=== PATIENT | female | born 1950 | race Caucasian/White ===

== ENCOUNTER 2024-08-31 22:54 | Inpatient (IN) | payer MEDICARE ==
--- NOTE | 2024-08-31 23:30 | ED ---
General Adult HPI - General Chief complaint: Dizziness Stated complaint: AMS Time Seen by Provider: 08/31/24 23:08 Source: patient Mode of arrival: EMS Limitations: no limitations - History of Present Illness Initial comments: Dictation was produced using [employer] dictation software. please excuse any grammatical, word or spelling errors. Chief Complaint: Patient 73-year-old female with dizziness. History of Present Illness: Patient 73-year-old female presents to the emergency department for dizziness. Patient states she has been feeling well most of the day. States she feels dizzy apparently has recent history of cognitive impairment. She was at another concert when her symptoms began. Patient states she feels much better since being in the ER. No pain. No fever, chills or night sweats. No obvious sick contacts. The ROS documented in this emergency department record has been reviewed and confirmed by me. Those systems with pertinent positive or negative responses have been documented in the HPI. All other systems are other negative and/or noncontributory. - Related Data Allergies Allergy/AdvReac Type Severity Reaction Status Date / Time No Known Allergies Allergy Verified 08/31/24 23:10 Review of Systems ROS Statement: Those systems with pertinent positive or pertinent negative responses have been documented in the HPI. ROS Other: All systems not noted in ROS Statement are negative. Past Medical History Past Medical History: Chest Pain / Angina, Diabetes Mellitus, Hypertension Additional Past Medical History / Comment(s): Breast Cancer History of Any Multi-Drug Resistant Organisms: None Reported Past Surgical History: Adenoidectomy, Tonsillectomy Past Psychological History: Anxiety Smoking Status: Never smoker Past Alcohol Use History: None Reported Past Drug Use History: None Reported General Exam - General Exam Comments Initial Comments: PHYSICAL EXAM: General Impression: Alert and oriented x3, not in acute distress HEENT: Normocephalic atraumatic, extra-ocular movements intact, pupils equal and reactive to light bilaterally, mucous membranes moist. Cardiovascular: Heart regular rate and rhythm Chest: Able to complete full sentences, no retractions, no tachypnea Abdomen: abdomen soft, non-tender, non-distended, no organomegaly Musculoskeletal: Pulses present and equal in all extremities, no peripheral edema Motor: no focal deficits noted Neurological: CN II-XII grossly intact, no focal motor or sensory deficits noted Skin: Intact with no visualized rashes Psych: Normal affect and mood Limitations: no limitations Course Vital Signs 08/31/24 08/31/24 23:04 23:31 Temperature 98.7 F Pulse Rate 100 100 Respiratory 18 16 Rate Blood Pressure 183/113 141/96 O2 Sat by Pulse 97 96 Oximetry - Reevaluation(s) Reevaluation #1: 09/01/24 01:08 Patient reevaluated at bedside at 1:07 AM. She does not have family. She is confused states that she lives in [place]. She believes that she is currently in [place]. Patient unaware that she is all the way in [place]. Multiple attempts were made to contact family however no response. Patient evaluated bedside at 1:08 AM found to be in stable medical condition. Patient well-appearing no distress. She however is confused and is unclear if patient has a history of dementia or mental disability. Medical Decision Making - Medical Decision Making Was pt. sent in by a medical professional or institution (, PA, OPERATIONS ASST, urgent care, hospital, or senior care...) When possible be specific @ -No Did you speak to anyone other than the patient for history (EMS, parent, family, police, friend...)? What history was obtained from this source @ -No Did you review nursing and triage notes (agree or disagree)? Why? @ -I reviewed and agree with nursing and triage notes Were old charts reviewed (outside hosp., previous admission, EMS record, old EKG, old radiological studies, urgent care reports/EKG's, senior care records)? Report findings @ -No old charts were reviewed Differential Diagnosis (chest pain, altered mental status, abdominal pain women, abdominal pain men, vaginal bleeding, musculoskeletal, weakness, fever, dyspnea, syncope, headache, dizziness, GI bleed, back pain, seizure, CVA, palpatations, mental health)? @ -Differential Altered Mental Status: Hypoglycemia, DKA, hypercapnia, ETOH, overdose, CO poisoning, trauma, myxedema coma, HTN encephalopathy, infection, encephalitis, psychosis, intercranial hemorrhage, hepatic encephalopathy, meningitis, CVA, this is not meant to be an all-inclusive list EKG interpreted by me (3pts min.). @ -See above X-rays interpreted by me (1pt min.). @ -None done CT interpreted by me (1pt min.). @ - U/S interpreted by me (1pt. min.). @ -None done What testing was considered but not performed or refused? (CT, X-rays, U/S, labs)? Why? @ -None What meds were considered but not given or refused? Why? @ -None Was smoking cessation discussed for >3mins.? @ -No Were there social determinants of health that impacted care today? How? (Homelessness, low income, unemployed, alcoholism, drug addiction, transportation, low edu. Level, literacy, decrease access to med. care, [facility], rehab)? @ -No Was there de-escalation of care discussed even if they declined (Discuss DNR or withdrawal of care, Hospice)? DNR status @ -No What co-morbidities impacted this encounter? (DM, HTN, Smoking, COPD, CAD, Cancer, CVA, ARF, Chemo, Hep., AIDS, mental health diagnosis, sleep apnea, morbid obesity)? @ -None Was patient admitted / discharged? Hospital course, mention meds given and route, prescriptions, significant lab abnormalities, going to OR and other pert inent info. @ -73-year-old female with no reported significant comorbidities presents to the ER for dizziness. Apparently was seen stumbling around at an outdoor concert. Vital signs stable. Patient no distress no focal neurologic deficits. Patient is confused and believes that she is currently in [place]. She does not know how she got here when she was told that she is currently in [facility]. Multiple attempts were made to contact family. Labs unremarkable. Patient will be admitted with social work consultation for disposition planning. Did you discuss the management of the patient with other professionals (professionals i.e. , PA, OPERATIONS ASST, lab, RT, psych nurse, family welfare social work professor, novelty twister operator, teacher, correctional officer, case therapist)? Give summary @ -Case discussed with hospitalist for admission Was critical care preformed (if so, how long)? @ -No Undiagnosed new problem with uncertain prognosis? @ -No Drug Therapy requiring intensive monitoring for toxicity (Heparin, Nitro, Insulin, Cardizem)? @ -No Were any procedures done? @ -No Diagnosis/symptom? Acute, or Chronic, or Acute on Chronic? Uncomplicated (without systemic symptoms) or Complicated (systemic symptoms)? @ -Altered mental status Side effects of treatment? @ -No Exacerbation, Progression, or Severe Exacerbation? @ -No Poses a threat to life or bodily function? How? (Chest pain, USA, [place], pneumonia, PE, COPD, DKA, ARF, appy, cholecystitis, CVA, Diverticulitis, Homicidal, Suicidal, threat to staff... and all critical care pts) @ -yes - Lab Data Result diagrams: 08/31/24 23:31 08/31/24 23:31 Lab Results 08/31/24 08/31/24 Range/Units 23:31 23:31 WBC 13.54 H (4.50-10.00) 10*3/uL RBC 4.74 (4.10-5.20) 10*6/uL Hgb 14.8 (12.0-15.0) g/dL Hct 44.6 (37.2-46.3) % MCV 94.1 (80.0-97.0) fL MCH 31.2 (27.0-32.0) pg MCHC 33.2 (32.0-37.0) g/dL Plt Count 311 (140-440) 10*3/uL MPV 10.4 (9.5-12.2) fL Immature Gran % (Auto) 0.2 % Neutrophils % 80.8 % Lymphocytes % 11.0 % Monocytes % 7.4 % Eosinophils % 0.2 % Basophils % 0.4 % Immature Gran # 0.03 (0.00-0.04) 10*3/uL Neutrophils # 10.94 H (1.80-7.70) 10*3/uL Lymphocytes # 1.49 (0.90-5.00) 10*3/uL Monocytes # 1.00 (0.20-1.00) 10*3/uL Eosinophils # 0.03 L (0.04-0.35) 10*3/uL Basophils # 0.05 (0.00-0.10) 10*3/uL Sodium 139 (137-145) mmol/L Potassium 4.2 (3.5-5.1) mmol/L Chloride 100 (98-107) mmol/L Carbon Dioxide 24 (22-30) mmol/L Anion Gap 15 mmol/L BUN 14 (7-17) mg/dL Creatinine 0.62 (0.52-1.04) mg/dL Est GFR (CKD-EPI)AfAm >90 (>60 ml/min/1.73 sqM) Est GFR (CKD-EPI)NonAf >90 (>60 ml/min/1.73 sqM) Glucose 145 H (74-99) mg/dL Calcium 10.4 H (8.4-10.2) mg/dL Total Bilirubin 1.7 H (0.2-1.3) mg/dL AST 37 H (14-36) U/L ALT 31 (4-34) U/L Alkaline Phosphatase 85 (38-126) U/L Total Protein 7.7 (6.3-8.2) g/dL Albumin 4.9 (3.5-5.0) g/dL Disposition Clinical Impression: AMS (altered mental status) Disposition: ADMITTED IP TO THIS HOSP Condition: Fair Referrals: None,Stated [Primary Care Provider] - 1-2 days Decision Time: 01:17
[2024-08-31] MEDS: SODIUM CHLORIDE 0.9% 1,000 ML IV STA (23:33)
[2024-08-31 23:48] LABS: Basophils # (A) 0.05 10*3/uL (0.00-0.10); Basophils % (A) 0.4 %; Eosinophils # (A) 0.03 10*3/uL (0.04-0.35); Eosinophils % (A) 0.2 %; HCT 44.6 % (37.2-46.3); HGB 14.8 g/dL (12.0-15.0); Lymphocytes # (A) 1.49 10*3/uL (0.90-5.00); MCH 31.2 pg (27.0-32.0); MCHC 33.2 g/dL (32.0-37.0); MCV 94.1 fL (80.0-97.0); Mean Platelet Volume 10.4 fL (9.5-12.2); Monocytes % (A) 7.4 %; Neutrophils # (A) 10.94 10*3/uL (1.80-7.70); Neutrophils % (A) 80.8 %; Platelet Count 311 10*3/uL (140-440); RBC 4.74 10*6/uL (4.10-5.20); RDW 13.1 % (11.5-14.5); WBC 13.54 10*3/uL (4.50-10.00)
[2024-09-01 00:24] LABS: ALT 31 U/L (4-34); AST 37 U/L (14-36); African American GFR (CKD) >90 (>60 ml/min/1.73 sqM); Albumin 4.9 g/dL (3.5-5.0); Alkaline Phosphatase 85 U/L (38-126); Anion Gap 15 mmol/L; Blood Urea Nitrogen 14 mg/dL (7-17); Calcium 10.4 mg/dL (8.4-10.2); Carbon Dioxide 24 mmol/L (22-30); Chloride 100 mmol/L (98-107); Glucose 145 mg/dL (74-99); Non-African American GFR(CKD) >90 (>60 ml/min/1.73 sqM); Potassium 4.2 mmol/L (3.5-5.1); Sodium 139 mmol/L (137-145); Total Bilirubin 1.7 mg/dL (0.2-1.3); Total Protein 7.7 g/dL (6.3-8.2)
[2024-09-01] MEDS ORDERED: NALOXONE 0.4 MG/ML 1 ML VIAL IV PRN (01:13)
--- NOTE | 2024-09-01 02:05 | P.HPIM ---
History of Present Illness H&P Date: 09/01/24 I have seen and evaluated the patient today. Discussed with the resident and agree with the residents finding and plan as documented in the resident's note. Changes highlighted in blue font. History of present illness; 73-year-old female with PMH of diabetes mellitus, hypertension, status post thyroidectomy, who presented to the emergency department after an onlookers at an outdoor concert felt that her gait was unsteady. Upon arrival she does not believe that she is in the [facility], she does endorse feeling uneasy on her feet over the past "few" months and that she has some sort of cognitive impairment which she states began about "6 months ago". She is not a reliable historian, however repeated those specific facts on multiple occasions. She states that she feels better since arriving in the ED and has no acute complaints when seen at bedside. Denies any fever, chills, night sweats or any sick contacts. She is an unreliable historian, and attempts to get in touch with family have been unsuccessful thus far. She is A&O x 1 and seems to be con fabulating Labratory review: - WBCs 13.54, hemoglobin 14.8, hematocrit 44.6, platelet 311; sodium 139, Tessman 4.2, bicarb 24, BUN 14, creatinine 0.62, calcium 10.4, total bilirubin 1.7, AST 37, ALT 31, alkaline phosphatase 85 Imaging: - CT brain completed, awaiting final read from radiology - EKG done in the ER independently read interpreted showed heart rate of 100, sinus tachycardia, possible evidence of left atrial enlargement; QTc 397 Vitals: - On arrival: Blood pressure 183/113, heart rate 100, respiratory rate 18, SpO2 97% on room air - Most recently: Blood pressure 141/96, heart rate 100, respiratory rate 16, SpO2 96% on room air Patient admitted to internal medicine service REVIEW OF SYSTEMS: Pertinent positives and negatives noted in HPI. The rest of the 14-point review of systems is negative. Physical Exam: General: nontoxic, no distress, appears at stated age; confused and A&O x 1 Derm: warm, dry, intact Head: atraumatic, normocephalic, symmetric Neck: Evidence of previous thyroidectomy Eyes: EOMI, injected sclera Mouth: no lip lesion, mucus membranes moist Cardiovascular: S1 S2 reg, no murmur, rubs, or gallops Lungs: CTA bilateral, no rales, no accessory muscle use Abdominal: soft, non-tender to palpataion, no appreciable organomegaly Extremities: no gross muscle atrophy, no edema, no contractures Neuro: Alert, Oriented, CNII-XII grossly intact, gait normal Psych: well appearing, appropriate affect Assessment and plan 73-year-old female with PMH of diabetes mellitus, hypertension who presented to the emergency department after an onlookers at an outdoor concert felt that her gait was unsteady and was brought in for further evaluation. #Acute encephalopathy of unknown origin - CT brain ordered, read currently pending. Urologic Surgeon - Urine toxicology screen ordered, currently pending - Treponemal antibody ordered, currently pending - Magnesium, phosphorus, TSH, uric acid, serum ceruloplasmin and copper, vitamin B12, folate, CRP, ESR - Will obtain ABG/VBG - Consider EEG and lumbar puncture for CSF analysis - Supplement with thiamine, folic acid and multivitamin - Consult neurology #Possible diabetes mellitus (patient states she takes metformin at home) - Hold oral medications - Accu-Cheks ACHS - Sliding scale initiated - Hemoglobin A1c ordered, currently pending - Monitor for hypoglycemia #Leukocytosis - Received 1 L NS bolus - Continue to monitor CBC #Hypercalcemia - Calcium 10.4 on arrival - Received 1 L NS bolus - Continue to monitor CMP #Hyperbilirubinemia and transaminitis - Total bilirubin 1.7 and AST 37 on arrival - Received 1 L NS bolus - Continue monitor CMP #Elevated blood pressure - States she takes medication for it, however unsure of which - Continue monitor vital signs Status post thyroidectomy -Takes Synthroid at home, unknown dose, will need to be confirmed with pharmacy/family, TSH pending GI prophylaxis: None DVT prophylaxis: Lovenox 40 mg subcu daily The patient is admitted with an anticipated less than 2 midnight stays for the evaluation of acute encephalopathy of unknown origin. CODE STATUS: Full code Discussed with: Patient Anticipated discharge place: Pending clinical course Dictation was produced using [employer] dictation software. please excuse any grammatical, word or spelling errors. Conrad Pham MD PGY-1 IM Past Medical History Past Medical History: Chest Pain / Angina, Diabetes Mellitus, Hypertension Additional Past Medical History / Comment(s): Breast Cancer History of Any Multi-Drug Resistant Organisms: None Reported Past Surgical History: Adenoidectomy, Tonsillectomy Past Psychological History: Anxiety Smoking Status: Never smoker Past Alcohol Use History: None Reported Past Drug Use History: None Reported Medications and Allergies Allergies Allergy/AdvReac Type Severity Reaction Status Date / Time No Known Allergies Allergy Verified 08/31/24 23:10 Physical Exam Vitals: Vital Signs Temp Pulse Resp BP Pulse Ox 08/31/24 23:31 100 16 141/96 96 08/31/24 23:04 98.7 F 100 18 183/113 97 Intake and Output 08/31/24 08/31/24 09/01/24 14:59 22:59 06:59 Other: Weight 72.575 kg Results CBC & Chem 7: 09/01/24 02:47 09/01/24 02:41 Labs: Abnormal Lab Results - Last 24 Hours (Table) 08/31/24 08/31/24 Range/Units 23:31 23:31 WBC 13.54 H (4.50-10.00) 10*3/uL Neutrophils # 10.94 H (1.80-7.70) 10*3/uL Eosinophils # 0.03 L (0.04-0.35) 10*3/uL Glucose 145 H (74-99) mg/dL Calcium 10.4 H (8.4-10.2) mg/dL Total Bilirubin 1.7 H (0.2-1.3) mg/dL AST 37 H (14-36) U/L
[2024-09-01 02:44] LABS: Glucose,Whole Blood 121 mg/dL (70-110)
[2024-09-01 02:46] LABS: ABG Base Excess 1.1 mmol/L; ABG HCO3 24 mmol/L (21-25); ABG Oxygen Saturation 97.9 % (94-97); ABG PCO2 34 mmHg (35-45); ABG PH 7.46 (7.35-7.45); ABG PO2 90 mmHg (83-108); ABG TCO2 26 mmol/L (19-24); Allen Test Performed? Yes
--- NOTE | 2024-09-01 03:21 | CT ---
EXAM: CT Head Without Intravenous Contrast CLINICAL HISTORY: ITS.REASON CT Reason: AMS TECHNIQUE: Axial computed tomography images of the head/brain without intravenous contrast. CTDI is 49.1 mGy and DLP is 1215.4 mGy-cm. This CT exam was performed using one or more of the following dose reduction techniques: automated exposure control, adjustment of the mA and/or kV according to patient size, and/or use of iterative reconstruction technique. COMPARISON: No relevant prior studies available. FINDINGS: Brain: Mild volume loss with prominent ventricles and sulci. Mild periventricular white matter hypoattenuation likely reflects chronic small vessel disease. No hemorrhage. Ventricles: Unremarkable. No ventriculomegaly. Bones/joints: Unremarkable. No acute fracture. Soft tissues: Unremarkable. Sinuses: Unremarkable as visualized. No acute sinusitis. Mastoid air cells: Unremarkable as visualized. No mastoid effusion. IMPRESSION: No evidence of acute intracranial abnormality.
[2024-09-01 03:38] LABS: Basophils # (A) 0.05 10*3/uL (0.00-0.10); Basophils % (A) 0.5 %; Eosinophils # (A) 0.03 10*3/uL (0.04-0.35); Eosinophils % (A) 0.3 %; HCT 41.1 % (37.2-46.3); HGB 13.4 g/dL (12.0-15.0); Lymphocytes # (A) 1.56 10*3/uL (0.90-5.00); Lymphocytes % (A) 15.7 %; MCH 30.7 pg (27.0-32.0); MCHC 32.6 g/dL (32.0-37.0); MCV 94.3 fL (80.0-97.0); Mean Platelet Volume 10.7 fL (9.5-12.2); Monocytes # (A) 0.78 10*3/uL (0.20-1.00); Monocytes % (A) 7.8 %; Neutrophils % (A) 75.5 %; Platelet Count 278 10*3/uL (140-440); RBC 4.36 10*6/uL (4.10-5.20); RDW 13.1 % (11.5-14.5); WBC 9.94 10*3/uL (4.50-10.00)
[2024-09-01 04:05] LABS: ALT 28 U/L (4-34); AST 36 U/L (14-36); African American GFR (CKD) >90 (>60 ml/min/1.73 sqM); Albumin 3.9 g/dL (3.5-5.0); Albumin/Globulin Ratio 1.5; Alkaline Phosphatase 74 U/L (38-126); Anion Gap 10 mmol/L; Blood Urea Nitrogen 13 mg/dL (7-17); Calcium 9.5 mg/dL (8.4-10.2); Carbon Dioxide 26 mmol/L (22-30); Chloride 102 mmol/L (98-107); Globulin 2.6 g/dL; Glucose 115 mg/dL (74-99); Magnesium 1.9 mg/dL (1.6-2.3); Non-African American GFR(CKD) >90 (>60 ml/min/1.73 sqM); Phosphorus 3.5 mg/dL (2.5-4.5); Potassium 3.6 mmol/L (3.5-5.1); Sodium 138 mmol/L (137-145); Total Bilirubin 1.3 mg/dL (0.2-1.3); Total Protein 6.5 g/dL (6.3-8.2); Uric Acid 4.8 mg/dL (3.7-7.4)
[2024-09-01 04:14] LABS: C Reactive Protein <0.5 mg/dL (<1.0)
[2024-09-01] MEDS ORDERED: DEXTROSE 50% SYRINGE 50 ML IVP PRN ×2 (05:27)
[2024-09-01 06:53] LABS: Appearance,Urine Cloudy (Clear); Bacteria,Urine Moderate /hpf; Bilirubin,Urine Negative (Negative); Blood,Urine Moderate (Negative); Color,Urine Light Yellow; Glucose,Urine (UA) Negative (Negative); Hyaline Casts,Urine 1 /lpf (0-2); Ketones,Urine 2+ (Negative); Leukocyte Esterase,Urine Large (Negative); Mucus,Urine Occasional /hpf; Nitrite,Urine Positive (Negative); PH, Urine 5.5 (5.0-8.0); Protein,Urine Trace (Negative); RBC,Urine 8 /hpf (0-5); Specific Gravity,Urine 1.021 (1.001-1.035); Squamous Epithelial Cell,Urine 14 /hpf (0-4); Urobilinogen,Urine <2.0 mg/dL (<2.0); WBC,Urine 123 /hpf (0-5)
[2024-09-01 06:55] LABS: Amphetamine Screen,Urine Not Detected (NotDetected); Barbiturate Screen,Urine Not Detected (NotDetected); Benzodiazepines Screen,Urine Not Detected (NotDetected); Cocaine Screen,Urine Not Detected (NotDetected); Methadone Screen, Urine Not Detected (NotDetected); Opiate Screen,Urine Not Detected (NotDetected); Oxycodone Screen, Urine Not Detected (NotDetected); Phencyclidine Screen,Urine Not Detected (NotDetected); Tricyclic Antidepressant,Urine Not Detected (NotDetected); Urn Cannabinoid Scrn Not Detected (NotDetected)
[2024-09-01] MEDS: INSULIN LISPRO (HumaLOG) 100 UNIT/ML 10 mL VL SQ SCH (07:47)
[2024-09-01] MEDS: MULTIVITAMINS, THERA 1 EACH TAB PO SCH (10:18)
[2024-09-01] MEDS: FOLIC ACID 1 MG TAB PO SCH (10:18)
[2024-09-01] MEDS: ENOXAPARIN 40 MG/0.4 ML SYRINGE SQ SCH (10:20)
[2024-09-01 12:28] LABS: Glucose,Whole Blood 129 mg/dL (70-110)
[2024-09-01] MEDS: THIAMINE 500 MG in SODIUM CHLORIDE 0.9% 50 ML IVPB SCH (12:28)
--- NOTE | 2024-09-01 17:15 | P.CNNES ---
History of Present Illness Consult date: 09/01/24 Requesting physician: Tiffany Dunn Reason for Consult: confusion, AMS History of Present Illness: This is a 73-year-old woman who presents to the emergency department because of dizziness. History is obtained by medical record patient is confused and it looks like patient has underlying dementia. Upon asking the patient where she while she stated she is in [place] and upon telling her this is [place] she was astonished and states no it is at [place]. Per the primary team's note it seems that the patient presents emergency department after an onlookers at the outdoor concert felt her gait was unsteady. Patient denies any focal weakness numbness visual disturbance. She was unable to tell me why she is in the hospital. She denies any fever. It seems the primary team spoke with the patient daughter and the patient has underlying dementia that was diagnosed 3 years ago and she is oriented x 1 at baseline. It seems that the patient gets frequent UTIs. Patient daughter spoke to the patient a year ago and reported that her sister was living with the patient. Denies any dizziness for me. Some of the workup during this hospital visit consisted of: ESR is 50 TSH is 2.450 Serum folate is more than 20 Vitamin B12 is 367 CRP is less than 0.5 I reviewed the rest of the lab workup Urine analysis seems concerning for urinary tract infection in which the leukocyte esterase is large, urine white blood cells under 23. Treponema pallidum ab: Nonreactive. CT of the head is reported as no evidence of acute intracranial abnormality Review of Systems Limited Past Medical History Past Medical History: Chest Pain / Angina, Diabetes Mellitus, Hypertension Additional Past Medical History / Comment(s): Breast Cancer History of Any Multi-Drug Resistant Organisms: None Reported Past Surgical History: Adenoidectomy, Tonsillectomy Past Psychological History: Anxiety Smoking Status: Never smoker Past Alcohol Use History: None Reported Past Drug Use History: None Reported Medications and Allergies Home Medications Medication Instructions Recorded Confirmed Type Atorvastatin [Lipitor] 80 mg PO DAILY 09/01/24 09/01/24 History Donepezil [Aricept] 10 mg PO DAILY 09/01/24 09/01/24 History Ezetimibe [Zetia] 10 mg PO DAILY 09/01/24 09/01/24 History lisinopriL [Zestril] 10 mg PO DAILY 09/01/24 09/01/24 History metFORMIN HCL ER [Glucophage XR] 500 mg PO HS 09/01/24 09/01/24 History Allergies Allergy/AdvReac Type Severity Reaction Status Date / Time No Known Allergies Allergy Verified 09/01/24 12:11 Physical Examination - Vital Signs Vital Signs: Vital Signs Temp Pulse Pulse Resp BP BP Pulse Ox 09/01/24 08:00 97.9 F 90 18 137/86 98 09/01/24 05:43 98.2 F 79 16 119/72 98 09/01/24 02:30 94 16 151/94 98 08/31/24 23:31 100 16 141/96 96 08/31/24 23:04 98.7 F 100 18 183/113 97 Intake and Output 09/01/24 09/01/24 09/01/24 06:59 14:59 22:59 Other: Weight 72.575 kg General: Sitting in a recliner chair. Neuro: Is very limited because confusion. Is oriented to self. Correctly states the month and the year is 2021. States she in [facility]. States she is in [place] and is adamant is in [place]. Was able to name objects correctly (pen and glasses). Is following simple commands. Pupils are rounds, 3mm and bilaterally reactive to light. Visual bauer are full to confrontation. EOM intact and no nystagmus. No facial weakness. Tongue is midline and moves side to side. No dysarthria. Motor: Strength is 5/5 throughout. Normal tone is normal and bulk. Cerebellar: Normal finger to nose. Reflex: 2+ throughout. Plantars: Mute bilaterally. Results - Laboratory Findings CBC and BMP: 09/01/24 02:47 09/01/24 02:41 Abnormal Lab Findings: Abnormal Labs 08/31/24 08/31/24 09/01/24 23:31 23:31 02:40 WBC 13.54 H Neutrophils # 10.94 H Eosinophils # 0.03 L ABG pH 7.46 H ABG pCO2 34 L ABG Total CO2 26 H ABG O2 Saturation 97.9 H Glucose 145 H POC Glucose (mg/dL) Calcium 10.4 H Total Bilirubin 1.7 H AST 37 H Urine Appearance Urine Protein Urine Ketones Urine Blood Urine Nitrite Ur Leukocyte Esterase Urine RBC Urine WBC Ur Squamous Epith Cells Urine Bacteria Urine Mucus 09/01/24 09/01/24 09/01/24 02:41 02:43 02:47 WBC Neutrophils # Eosinophils # 0.03 L ABG pH ABG pCO2 ABG Total CO2 ABG O2 Saturation Glucose 115 H POC Glucose (mg/dL) 121 H Calcium Total Bilirubin AST Urine Appearance Urine Protein Urine Ketones Urine Blood Urine Nitrite Ur Leukocyte Esterase Urine RBC Urine WBC Ur Squamous Epith Cells Urine Bacteria Urine Mucus 09/01/24 09/01/24 03:58 12:27 WBC Neutrophils # Eosinophils # ABG pH ABG pCO2 ABG Total CO2 ABG O2 Saturation Glucose POC Glucose (mg/dL) 129 H Calcium Total Bilirubin AST Urine Appearance Cloudy H Urine Protein Trace H Urine Ketones 2+ H Urine Blood Moderate H Urine Nitrite Positive H Ur Leukocyte Esterase Large H Urine RBC 8 H Urine WBC 123 H Ur Squamous Epith Cells 14 H Urine Bacteria Moderate H Urine Mucus Occasional H Assessment and Plan Assessment: This is a 73 y/o woman with hx of dementia (0X1), recurrent UTI who presents because of ?dizziness. She denies dizziness and on u/a seems suggestive of UTI. Probable UTI ?Dizziness due to above--currently no currently dizzy and no focal deficit. CT head is negative for acute process. Underlying Dementia and is oriented X1---currently at baseline History of recurrent UTI HTN DM s/p thyroidectomy Plan: Lyme, copper, HbA1c is ordered. Consider thiamine level. If patient confusion is worse than baseline recommend routine EEG and MRI Brain Primary team is obtaining a repeat u/a since felt contaminant Will defer the rest of medical management to primary team and other specialist. The plan is discussed with primary team. Thank you for the consultation. Time with Patient: Greater than 30
[2024-09-01 17:52] LABS: Glucose,Whole Blood 91 mg/dL (70-110)
[2024-09-01 20:32] LABS: Glucose,Whole Blood 145 mg/dL (70-110)
[2024-09-02 06:11] LABS: Glucose,Whole Blood 127 mg/dL (70-110)
[2024-09-02 08:55] LABS: HCT 41.8 % (37.2-46.3); HGB 13.8 g/dL (12.0-15.0); MCH 30.8 pg (27.0-32.0); MCV 93.3 fL (80.0-97.0); Mean Platelet Volume 10.1 fL (9.5-12.2); Platelet Count 280 10*3/uL (140-440); RBC 4.48 10*6/uL (4.10-5.20); RDW 12.8 % (11.5-14.5); WBC 7.31 10*3/uL (4.50-10.00)
[2024-09-02 09:11] LABS: African American GFR (CKD) >90 (>60 ml/min/1.73 sqM); Anion Gap 8 mmol/L; Blood Urea Nitrogen 13 mg/dL (7-17); Calcium 9.4 mg/dL (8.4-10.2); Carbon Dioxide 27 mmol/L (22-30); Chloride 103 mmol/L (98-107); Glucose 222 mg/dL (74-99); Non-African American GFR(CKD) >90 (>60 ml/min/1.73 sqM); Potassium 3.9 mmol/L (3.5-5.1); Sodium 138 mmol/L (137-145)
[2024-09-02] MEDS: ATORVASTATIN 80 MG TAB PO SCH (09:21)
[2024-09-02] MEDS: DONEPEZIL 10 MG TAB PO SCH (09:21)
[2024-09-02] MEDS: lisinopriL 10 MG TAB PO SCH (09:21)
[2024-09-02] MEDS: EZETIMIBE 10 MG TAB PO SCH (09:21)
[2024-09-02 11:14] LABS: Glucose,Whole Blood 165 mg/dL (70-110)
--- NOTE | 2024-09-02 11:52 | P.PN ---
Subjective Progress Note Date: 09/02/24 I am following-up with the patient and per the nurse she is pleasantly cooperative. Upon seeing her she states she was not in [place] and was looking for her notes to find out what she was told. She states she came to the hospital since was confused. Objective - Vital Signs Vital signs: Vital Signs Temp 98.5 F 09/02/24 07:16 Pulse 79 09/02/24 07:43 Resp 17 09/02/24 07:43 BP 126/81 09/02/24 07:16 Pulse Ox 96 09/02/24 07:16 FiO2 Intake & Output 09/01/24 09/02/24 09/02/24 18:59 06:59 18:59 Weight 72.575 kg Other: Voiding Method Toilet Toilet Toilet # Voids 1 1 - Exam Genera: Sitting on side of bed and is not in acute distress. Neuro: The patient is awake, alert oriented to self. She states she is not in [place] but with options she acknowledged she was in [place]. She did not know month or year currently. She stated she is in the hospital but did not know name. She correctly named objects (pen and watch). Is following simple commands. No aphasia. No facial weakness. No dysarthria. Motor: Is lifting all extremities above gravity equally. Some of the workup during this hospital visit consisted of: ESR is 15 TSH is 2.450 Serum folate is more than 20 Vitamin B12 is 367 CRP is less than 0.5 Treponema Pallidum ab: Nonreactive I reviewed the rest of the lab workup Urine analysis seems concerning for urinary tract infection in which the leukocyte esterase is large, urine white blood cells under 23. Treponema pallidum ab: Nonreactive. CT head: No evidence of acute intracranial abnormality. - Labs CBC & Chem 7: 09/02/24 08:41 09/02/24 08:41 Labs: Abnormal Lab Results - Last 24 Hours (Table) 09/01/24 09/01/24 09/02/24 Range/Units 12:27 20:31 06:10 Glucose (74-99) mg/dL POC Glucose (mg/dL) 129 H 145 H 127 H (70-110) mg/dL 09/02/24 09/02/24 Range/Units 08:41 11:12 Glucose 222 H (74-99) mg/dL POC Glucose (mg/dL) 165 H (70-110) mg/dL Microbiology - Last 24 Hours (Table) 09/01/24 03:58 Urine Culture - Preliminary Urine,Voided Gram Neg Bacilli Assessment and Plan Assessment: This is a 73 y/o woman with hx of dementia (0X1), recurrent UTI who presents because of ?dizziness. She denies dizziness and on u/a seems suggestive of UTI. Probable UTI ?Dizziness with ?worsening confusion due to above--currently no currently dizzy, back to baseline and no focal deficit. CT head is negative for acute process. Underlying Dementia and is oriented X1---currently at baseline History of recurrent UTI HTN DM s/p thyroidectomy Plan: Lyme is ordered by primary team. Ordered thiamine level. Primary team is obtaining a repeat u/a since felt contaminant If patient confusion is worse than baseline recommend routine EEG and MRI Brain Will defer the rest of medical management to primary team and other specialist. The plan is discussed with nurse. Time with Patient: Less than 30
--- NOTE | 2024-09-02 13:12 | P.PN ---
Subjective Progress Note Date: 09/02/24 Subjective: Patient seen and examined at bedside. No acute events overnight. Pertinent positives and negatives as discussed above, a complete review of systems was performed and all other systems are negative. Vitals Signs Reviewed. General: Nontoxic, no distress, appears at stated age Derm: Warm, dry Head: Atraumatic, normocephalic, symmetric Eyes: EOMI, no lid lag, anicteric sclera Mouth: No lip lesion, mucus membranes moist Cardiovascular: S1S2 reg, no murmur Lungs: CTA bilateral, no rhonchi, no rales, no accessory muscle use Abdominal: Soft, nontender to palpation, no guarding, no appreciable organomegaly Ext: No gross muscle atrophy, no edema, no contractures Neuro: CN II-XI grossly intact, no focal neuro deficits Psych: Alert, oriented x 1, appropriate affect Data Reviewed Today: Pertinent Labs: WBC 7.31, hemoglobin 13.8, creatinine 0.61, blood sugars range between 127-165 Imaging: No new imaging Assessment and Plan: Active: Acute encephalopathy versus dementia - Per daughter, patient is at her baseline - Continue donepezil 10 mg daily - Neurology following, could consider EEG and MRI if concern for acute encephalopathy - Lyme studies, copper levels, thiamine levels also pending Abnormal UA - Was a contaminated sample - Repeat urinalysis pending Chronic: Dyslipidemia Hypertension DVT ppx: Lovenox Code status: Full code Anticipated discharge place: Pending clinical course Anticipated discharge time: Pending clinical course Objective - Vital Signs Vital signs: Vital Signs Temp 98.5 F 09/02/24 07:16 Pulse 79 09/02/24 07:43 Resp 17 09/02/24 07:43 BP 126/81 09/02/24 07:16 Pulse Ox 96 09/02/24 07:16 FiO2 Intake & Output 09/01/24 09/02/24 09/02/24 18:59 06:59 18:59 Weight 72.575 kg Other: Voiding Method Toilet Toilet Toilet # Voids 1 1 - Labs CBC & Chem 7: 09/02/24 08:41 09/02/24 08:41 Labs: Abnormal Lab Results - Last 24 Hours (Table) 09/01/24 09/01/24 09/02/24 Range/Units 03:58 20:31 06:10 Glucose (74-99) mg/dL POC Glucose (mg/dL) 145 H 127 H (70-110) mg/dL Hemoglobin A1c 7.2 H (<=6.0) % 09/02/24 09/02/24 Range/Units 08:41 11:12 Glucose 222 H (74-99) mg/dL POC Glucose (mg/dL) 165 H (70-110) mg/dL Hemoglobin A1c (<=6.0) % Microbiology - Last 24 Hours (Table) 09/01/24 03:58 Urine Culture - Preliminary Urine,Voided Gram Neg Bacilli
[2024-09-02 14:55] LABS: Appearance,Urine Clear (Clear); Bilirubin,Urine Negative (Negative); Blood,Urine Negative (Negative); Color,Urine Colorless; Glucose,Urine (UA) Negative (Negative); Ketones,Urine Negative (Negative); Leukocyte Esterase,Urine Negative (Negative); Nitrite,Urine Negative (Negative); Protein,Urine Negative (Negative); Specific Gravity,Urine 1.002 (1.001-1.035); Urobilinogen,Urine <2.0 mg/dL (<2.0)
[2024-09-02 16:34] LABS: Glucose,Whole Blood 155 mg/dL (70-110)
[2024-09-02 20:24] LABS: Glucose,Whole Blood 132 mg/dL (70-110)
[2024-09-03 06:09] LABS: Glucose,Whole Blood 130 mg/dL (70-110)
[2024-09-03 08:33] VITALS: RESP 16
[2024-09-03 11:43] LABS: Glucose,Whole Blood 123 mg/dL (70-110)
--- NOTE | 2024-09-03 14:16 | P.PN ---
Subjective Progress Note Date: 09/03/24 I spoke with the primary team and her nurse, and it seems her daughter from [place] drove here and she notified team that patient does resides in [place] and has underlying Dementia for past one year. It seems the patient was residing with other daughter who resides in [place] and it seems the daughter left her byself recently. The patient did drive by self from [place] to [place] and was found wondering around. Objective - Vital Signs Vital signs: Vital Signs Temp 98.0 F 09/03/24 07:32 Pulse 78 09/03/24 07:32 Resp 16 09/03/24 07:32 BP 139/80 09/03/24 07:32 Pulse Ox 96 09/03/24 07:32 FiO2 Intake & Output 09/02/24 09/03/24 09/03/24 18:59 06:59 18:59 Other: Voiding Method Toilet Toilet Toilet # Voids 4 2 - Exam Genera: Sitting on recliner chair and is not in acute distress. Neuro: The patient is awake, alert oriented to self. She states she is not in [place] but with options she acknowledged she was in [place] again just like yesterday. She states the year is 2023 and did not know month. Upon asking her place, she was looking at the board. She correctly named objects (pen and watch). Is following simple commands. No aphasia. No facial weakness. No dysarthria. Motor: Is strength is 5/5 throughout. Some of the workup during this hospital visit consisted of: ESR is 15 TSH is 2.450 Serum folate is more than 20 Vitamin B12 is 367 CRP is less than 0.5 Treponema Pallidum ab: Nonreactive I reviewed the rest of the lab workup Urine analysis seems concerning for urinary tract infection in which the leukocyte esterase is large, urine white blood cells under 23. But repeat was negative. Treponema pallidum ab: Nonreactive. CT head: No evidence of acute intracranial abnormality. - Labs CBC & Chem 7: 09/02/24 08:41 09/02/24 08:41 Labs: Abnormal Lab Results - Last 24 Hours (Table) 09/02/24 09/02/24 09/03/24 Range/Units 16:32 20:22 06:07 POC Glucose (mg/dL) 155 H 132 H 130 H (70-110) mg/dL 09/03/24 Range/Units 11:41 POC Glucose (mg/dL) 123 H (70-110) mg/dL Microbiology - Last 24 Hours (Table) 09/01/24 03:58 Urine Culture - Final Urine,Voided Escherichia coli Assessment and Plan Assessment: This is a 73 y/o woman with hx of dementia (0X1). Initially there is ?dizziness but today unsure if truly had so not good historian and today feels she is doing well. It seems she her daughter in [place] was living with her and her daughter left her alone and patient drove from [place] to [place] and was found wondering around. Confusion due to her underlying dementia (per family members this is baseline that she notified primary team). CT head is negative for acute process. ?Reported dizziness that is reported but states does not have any dizziness. No focal deficit on examination. ?Initial U/A was questionable for UTI but repeated was negative. Underlying Dementia and is oriented X1---currently at baseline History of recurrent UTI HTN DM s/p thyroidectomy Plan: Pending thiamine level. I spoke with primary team about considering pursuing EEG and but per Primary team this is her baseline and to hold EEG for now. Upon discharge, recommend the patient to follow-up with outpatient neurologist for full evaluation for her dementia in [place] Recommend patient to avoid driving and not residing by self since not felt safe. Psychiatry is consulted for capacity. Will defer the rest of medical management to primary team and other specialist. The plan is discussed with primary team and nurse. Will follow-up with patient sporadically. Dr. Garcia will resume neurology service tomorrow A.M. Time with Patient: Less than 30
[2024-09-03 16:36] LABS: Glucose,Whole Blood 91 mg/dL (70-110)
--- NOTE | 2024-09-03 16:48 | P.PN ---
Subjective Progress Note Date: 09/03/24 Principal diagnosis: Hospital course: 73-year-old female with PMH of diabetes mellitus, hypertension, status post thyroidectomy, who presented to the emergency department after an onlookers at an outdoor concert felt that her gait was unsteady. Upon arrival she does not believe that she is in the [facility], she does endorse feeling uneasy on her feet over the past "few" months and that she has some sort of cognitive impairment which she states began about "6 months ago". She is not a reliable historian, however repeated those specific facts on multiple occasions. She states that she feels better since arriving in the ED and has no acute complaints when seen at bedside. Denies any fever, chills, night sweats or any sick contacts. She is an unreliable historian, and attempts to get in touch with family have been unsuccessful thus far. She is A&O x 1 and seems to be confabulating 09/02 Patient seen and examined at bedside. No acute events overnight. 09/03/24: Patient is seen and examined at bedside today. No acute events overnight. Patient denies any acute complaints. Review of systems: Pertinent positives and negatives as discussed in HPI, a complete review of systems was performed and all other systems are negative. Vitals: Signs Reviewed Physical examination: General: Nontoxic, no distress, appears at stated age Derm: Warm, dry Head: Atraumatic, normocephalic, symmetric Eyes: EOMI, no lid lag, anicteric sclera Mouth: No lip lesion, mucus membranes moist Cardiovascular: S1S2 reg, no murmur Lungs: CTA bilateral, no rhonchi, no rales, no accessory muscle use Abdominal: Soft, nontender to palpation, no guarding, no appreciable organomegaly Ext: No gross muscle atrophy, no edema, no contractures Neuro: CN II-XI grossly intact, no focal neuro deficits Psych: Alert, oriented x 1, appropriate affect Data Reviewed Today: Labs: No new labs Imaging: No new imaging Assessment/Plan: 73-year-old female with PMH of diabetes mellitus, hypertension, status post thyroidectomy, who presented to the emergency department after an onlookers at an outdoor concert felt that her gait was unsteady. Patient is A & O x1 at baseline. Patient will be discharged tomorrow. Active: #. Acute encephalopathy vs dementia Brain CT shows no evidence of acute intracranial abnormality Blood gas: PO2 90, pCO2 34, pH 7.46 UA shows 14 squamous epithelial cells, cloudy appearance, trace protein, 2+ ketones, moderate blood, positive nitrate, large leukocyte esterase, 8 RBC, 130 WBC, moderate bacteria, occasional mucus ESR 15, phosphorus 3.5, magnesium 1.9, CRP <0.5, ceruloplasmin 21.7, vitamin B12 367, folate > 20, TSH 2.45, uric acid 4.8 Treponemal antibody, Lyme screen, urine tox screen negative Copper level pending Thiamine IV discontinued Started on Thiamine 100 mg PO Daily Continue folic acid 1mg PO daily, and multivitamin daily Continue home med Donepezil 10 mg PO daily Neurology is following, recommend the patient to follow-up with outpatient neurologist for full evaluation for her dementia in [place], avoid driving and not residing by self since not felt safe. Psychiatry consulted for capacity evaluation #. Abnormal UA UA shows 14 squamous epithelial cells, cloudy appearance, trace protein, 2+ ketones, moderate blood, positive nitrate, large leukocyte esterase, 8 RBC, 130 WBC, moderate bacteria, occasional mucus Repeat UA obtained via straight cath - unremarkable #. Diabetes mellitus A1c 7.2 Hold home oral medications Continue Insulin Sliding scale and [facility] blood glucose monitoring Monitor for hypoglycemia #. Leukocytosis, resolved #. Hypercalcemia, resolved #. Hyperbilirubinemia ,resolved Chronic: #. Dyslipidemia #. Hypertension Continue Atorvastatin 80 mg PO daily, Zetia 10 mg PO daily, Lisinopril 10 mg PO daily F: None E: Replete as required N: Heart healthy diet A: Ambulatory DVT prophylaxis: Lovenox 40 mg SQ daily Code status: FULL CODE Anticipated discharge place: Home with daughter Anticipated discharge time: Tomorrow Dictation was produced using [employer] dictation software. please excuse any grammatical, word or spelling errors. Reinaldo Carlson MD PGY-1 IM I have seen and evaluated the patient today. Discussed with the resident and agree with the residents finding and plan as documented in the resident's note. Changes highlighted in blue font. Objective - Vital Signs Vital signs: Vital Signs Temp 97.9 F 09/03/24 15:15 Pulse 78 09/03/24 15:15 Resp 16 09/03/24 15:15 BP 143/88 09/03/24 15:15 Pulse Ox 98 09/03/24 15:15 FiO2 Intake & Output 09/02/24 09/03/24 09/03/24 18:59 06:59 18:59 Other: Voiding Method Toilet Toilet Toilet # Voids 4 2 - Labs CBC & Chem 7: 09/02/24 08:41 09/02/24 08:41 Labs: Abnormal Lab Results - Last 24 Hours (Table) 09/02/24 09/03/24 09/03/24 Range/Units 20:22 06:07 11:41 POC Glucose (mg/dL) 132 H 130 H 123 H (70-110) mg/dL Microbiology - Last 24 Hours (Table) 09/01/24 03:58 Urine Culture - Final Urine,Voided Escherichia coli
[2024-09-03 20:45] LABS: Glucose,Whole Blood 147 mg/dL (70-110)
[2024-09-03 21:12] VITALS: BP 121/78
[2024-09-04 02:32] VITALS: PULSE 96; TEMP 97.7
[2024-09-04 06:29] LABS: Glucose,Whole Blood 102 mg/dL (70-110)
--- NOTE | 2024-09-04 06:46 | P.DS ---
Providers Date of admission: 09/03/24 10:59 Expected date of discharge: 09/04/24 Attending physician: Tiffany Dunn MD Consults: 09/01/24 02:35 Consult Physician Routine Consulting Provider: Armando Lopez Consult Reason/Comments: confusion, AMS Do you want consulting provider notified?: Yes 09/03/24 12:37 Consult Physician Routine Consulting Provider: Alejandro Maurice Consult Reason/Comments: assess capacity Do you want consulting provider notified?: Yes Primary care physician: Stated None Hospital Course: Discharge diagnosis: Acute encephalopathy vs Dementia Diabetes mellitus Leukocytosis, resolved Hypercalcemia, resolved Hyperbilirubinemia ,resolved Elevated blood pressure, resolved Status post thyroidectomy Dyslipidemia Hypertension Hospital Course: 73-year-old female with PMH of diabetes mellitus, hypertension, status post thyroidectomy, who presented to the emergency department after an onlookers at an outdoor concert felt that her gait was unsteady. Upon arrival she does not believe that she is in the [facility], she does endorse feeling uneasy on her feet over the past "few" months and that she has some sort of cognitive impairment which she states began about "6 months ago". She is not a reliable historian, however repeated those specific facts on multiple occasions. Initial workup in the ED showed vitals Blood pressure 183/113, heart rate 100, respiratory rate 18, SpO2 97% on room air. CT brain completed, awaiting final read from radiology. EKG done in the ER independently read interpreted showed heart rate of 100, sinus tachycardia, possible evidence of left atrial enlargement; QTc 397. WBCs 13.54, hemoglobin 14.8, hematocrit 44.6, platelet 311; sodium 139, Tessman 4.2, bicarb 24, BUN 14, creatinine 0.62, calcium 10.4, total bilirubin 1.7, AST 37, ALT 31, alkaline phosphatase 85. At that point patient was started on thiamine 500 mg IVPB 3 times daily and supplemented with folic acid and multivitamin. Further workup showed ESR 15, phosphorus 3.5, magnesium 1.9, CRP <0.5, ceruloplasmin 21.7, vitamin B12 367, folate > 20, TSH 2.45, uric acid 4.8. Blood gas: PO2 90, pCO2 34, pH 7.46. UA shows 14 squamous epithelial cells, cloudy appearance, trace protein, 2+ ketones, moderate blood, positive nitrate, large leukocyte esterase, 8 RBC, 130 WBC, moderate bacteria, occasional mucus. Troponin antibody and Lyme screen negative. Another sample of urine through straight cath was obtained that showed UA was unremarkable. IV thiamine changed to oral thiamine. Patient's daughter was contacted who stated that the patient's baseline is Alert Oriented x1. Daughter wants to take the patient to [place] and look for memory care center placement there.Recommend patient to follow-up with outpatient neurologist for full evaluation for her dementia in [place] and patient to avoid driving and not residing by self since not felt safe. Patient has been optimized for discharge home with family. Patient seen at bedside today and is feeling good and excited about discharge. Patient will be discharged today. Patient is given a handout for dementia and is advised to be compliant with medications. Patient is advised to follow-up with PCP in 1-2 days. Vital signs are reviewed and stable General: Nontoxic, no distress, appears at stated age Derm: Warm, dry Head: Atraumatic, normocephalic, symmetric Eyes: EOMI, no lid lag, anicteric sclera Mouth: No lip lesion, mucus membranes moist Cardiovascular: S1S2 reg, no murmur Lungs: CTA bilateral, no rhonchi, no rales, no accessory muscle use Abdominal: Soft, nontender to palpation, no guarding, no appreciable organomegaly Ext: No gross muscle atrophy, no edema, no contractures Neuro: CN II-XI grossly intact, no focal neuro deficits Psych: Alert, oriented x 1, appropriate affect A total of 30 minutes of time were spent preparing this complex discharge summary. Patient was discharged on 09/04/24 at 0640. Dictation was produced using [employer] dictation software. please excuse any grammatical, word or spelling error Reinaldo Carlson MD PGY-1 IM I have seen and evaluated the patient today. Discussed with the resident and agree with the residents finding and plan as documented in the resident's note. Changes highlighted in blue font. Patient Condition at Discharge: Stable Plan - Discharge Summary New Discharge Prescriptions: New Folic Acid 1 mg PO DAILY 30 Days #30 tab Multivitamins, Thera [Multivitamin (formulary)] 1 each PO DAILY 30 Days #30 tab Thiamine [Vitamin B-1] 100 mg PO DAILY 30 Days #30 tab Continue lisinopriL [Zestril] 10 mg PO DAILY Atorvastatin [Lipitor] 80 mg PO DAILY metFORMIN HCL ER [Glucophage XR] 500 mg PO HS Ezetimibe [Zetia] 10 mg PO DAILY Donepezil [Aricept] 10 mg PO DAILY Discharge Medication List Atorvastatin [Lipitor] 80 mg PO DAILY 09/01/24 [History] Donepezil [Aricept] 10 mg PO DAILY 09/01/24 [History] Ezetimibe [Zetia] 10 mg PO DAILY 09/01/24 [History] lisinopriL [Zestril] 10 mg PO DAILY 09/01/24 [History] metFORMIN HCL ER [Glucophage XR] 500 mg PO HS 09/01/24 [History] Folic Acid 1 mg PO DAILY 30 Days #30 tab 09/03/24 [Rx] Multivitamins, Thera [Multivitamin (formulary)] 1 each PO DAILY 30 Days #30 tab 09/03/24 [Rx] Thiamine [Vitamin B-1] 100 mg PO DAILY 30 Days #30 tab 09/03/24 [Rx] Follow up Appointment(s)/Referral(s): None,Stated [Primary Care Provider] - 1-2 days Patient Instructions/Handouts: Dementia (GEN) Activity/Diet/Wound Care/Special Instructions: Recommendation: the patient to follow-up with outpatient neurologist for full evaluation for her dementia in [place] and patient to avoid driving and not residing by self since not felt safe. Discharge Disposition: HOME SELF-CARE
[2024-09-04] MEDS ORDERED: THIAMINE 100 MG TAB PO SCH (09:00)
== END 2024-09-04 08:36 | disposition home or self-care (01) | DRG 884 ==
LOC: EC 22:54 → 4SSUR 09-01 01:15 → OBSVTOIN 09-03 10:59
PROVIDERS: ADMIT Student in an Organized Health Care Education/Training Program; ATTEND Student in an Organized Health Care Education/Training Program
DX: F03.94 Unspecified dementia, unspecified severity, with anxiety (principal); G93.40 Encephalopathy, unspecified; D72.829 Elevated white blood cell count, unspecified; E11.9 Type 2 diabetes mellitus without complications; E80.6 Other disorders of bilirubin metabolism; E78.5 Hyperlipidemia, unspecified; E89.0 Postprocedural hypothyroidism; I10 Essential (primary) hypertension; R74.01 Elevation of levels of liver transaminase levels; R42 Dizziness and giddiness; E83.52 Hypercalcemia; Z87.440 Personal history of urinary (tract) infections; Z85.3 Personal history of malignant neoplasm of breast; Z79.84 Long term (current) use of oral hypoglycemic drugs; Z79.890 Hormone replacement therapy; Z79.899 Other long term (current) drug therapy
CPT/HCPCS: 36415; 36600; 70450; 80048; 80053; 80306; 81001; 81003; 82390; 82525; 82607; 82746; 82805; 83036; 83735; 84100; 84425; 84443; 84550; 85025; 85027; 85652; 86140; 86618; 86780; 87077; 87086; 87186; 93005; 96361; 96365; 96366; 96372; 99285